=== PATIENT | female | born 1955 | race Hispanic/Latino ===

== ENCOUNTER 2017-04-10 20:11 | Emergency (ER) | payer OTHER ==
[~2017-04-10] VITALS: Ht 152.4 cm; Wt 81.7 kg
[~2017-04-10 20:11] MED LIST: LISINOPRIL-HCT1 EAC2 PO; METFORMIN HCL1000 MG PO; NOVOLOG100 UNITS/ SUB-Q; ULTRAM50 MG PO; ZOFRAN ODT8 MG PO
[2017-04-10] MEDS ORDERED: SIMVASTATIN20 MG PO (22:34)
[2017-04-10] MEDS ORDERED: LIPITOR40 MG PO (22:36)
== END 2017-04-10 23:30 | disposition home or self-care (01) ==
LOC: ED 20:11
DX: J11.1 Influenza due to unidentified influenza virus with other respiratory manifestations (principal); J20.9 Acute bronchitis, unspecified; E11.9 Type 2 diabetes mellitus without complications; I10 Essential (primary) hypertension; Z88.5 Allergy status to narcotic agent; Z79.4 Long term (current) use of insulin; Z79.899 Other long term (current) drug therapy
CPT/HCPCS: 99282

== ENCOUNTER 2017-11-28 09:28 | Emergency (ER) | payer OTHER ==
[~2017-11-28] VITALS: Ht 152.4 cm; Wt 78.0 kg
[~2017-11-28 09:28] MED LIST changes: +LIPITOR40 MG PO; +SIMVASTATIN20 MG PO
[2017-11-28] MEDS ORDERED: LEVEMIR FL100 UNIT/2 (10:01)
[2017-11-28] MEDS ORDERED: HUMALOG100 UNIT/2 SUB-Q (10:01)
[2017-11-28] MEDS ORDERED: NORCO 5-325 TA1 EACH PO (14:33)
== END 2017-11-28 14:51 | disposition home or self-care (01) ==
LOC: ED 09:28
DX: R10.9 Unspecified abdominal pain (principal); E11.9 Type 2 diabetes mellitus without complications; I10 Essential (primary) hypertension; E66.9 Obesity, unspecified; Z88.5 Allergy status to narcotic agent; Z79.4 Long term (current) use of insulin; Z79.899 Other long term (current) drug therapy
CPT/HCPCS: 74177; 80053; 81001; 83690; 85025; 96374; 96375; 99284; J1170; J1885; J2405; Q9967